=== PATIENT | male | born 1965 | race Caucasian/White ===

== ENCOUNTER 2021-01-27 23:55 | Inpatient (IN) | payer OTHER ==
[~2021-01-27] VITALS: Ht 182.9 cm; Wt 86.2 kg
[2021-01-28 01:12] LABS: HEMOGLOBIN 19.4 gm/dl (14.0-17.5); RED BLOOD COUNT 6.66 M/UL (4.20-5.50); WHITE BLOOD COUNT 14.5 K/UL (4.5-11.0)
[2021-01-28 01:47] LABS: BUN/CREATININE RATIO 23 (0-10)
[2021-01-28] MEDS ORDERED: GABAPENTIN300 MG PO (05:35)
[2021-01-28] MEDS ORDERED: HUMALOG 10100 UNITS/ SC (05:36)
[2021-01-28] MEDS ORDERED: ATORVASTATIN CA20 MG PO (05:40)
[2021-01-29 07:15] LABS: HEMOGLOBIN 18.9 gm/dl (14.0-17.5); RED BLOOD COUNT 6.18 M/UL (4.20-5.50)
[2021-01-29 07:27] LABS: WHITE BLOOD COUNT 8.5 K/UL (4.5-11.0)
[2021-01-29 07:51] LABS: BUN/CREATININE RATIO 19 (0-10)
[2021-01-29] MEDS ORDERED: ASPIRIN EC81 MG PO (16:04)
[2021-01-29] MEDS ORDERED: ATORVASTATIN CA20 MG PO (16:13)
--- NOTE | 2021-01-29 19:54 | NUR ---
1946- OFFERED PATIENT AN ENEMA AND HE REFUSED STATED HE WOULD DO AN ENEMA LATER AT HOME IF NEEDED.
== END 2021-01-29 19:50 | disposition home or self-care (01) | DRG 439 ==
LOC: ER1 23:55 → M/S 01-28 03:49 → CDU 01-28 03:49 → M/S 01-28 05:27
PROVIDERS: Family Medicine; Internal Medicine; ADMIT Internal Medicine
DX: K85.10 Biliary acute pancreatitis without necrosis or infection (principal); I74.5 Embolism and thrombosis of iliac artery; E44.0 Moderate protein-calorie malnutrition; E86.0 Dehydration; I70.209 Unspecified atherosclerosis of native arteries of extremities, unspecified extremity; R07.89 Other chest pain; E78.5 Hyperlipidemia, unspecified; D75.839 Thrombocytosis, unspecified; K59.00 Constipation, unspecified; R91.1 Solitary pulmonary nodule; F17.210 Nicotine dependence, cigarettes, uncomplicated; K76.0 Fatty (change of) liver, not elsewhere classified; E11.40 Type 2 diabetes mellitus with diabetic neuropathy, unspecified; Z79.4 Long term (current) use of insulin; Z79.82 Long term (current) use of aspirin; Z83.3 Family history of diabetes mellitus; Z68.25 Body mass index [BMI] 25.0-25.9, adult
CPT/HCPCS: 36415; 71045; 76705; 80053; 80061; 81001; 82550; 82553; 82962; 83690; 83874; 84484; 85025; 85027; 87040; 93005; 96374; 96375; 99285; C9113; J1650; J2270; J2405; J7120; Q9967; U0002

== ENCOUNTER 2021-11-07 19:39 | Inpatient (IN) | payer OTHER ==
[~2021-11-07] VITALS: Ht 185.4 cm; Wt 86.2 kg
[~2021-11-07 19:39] MED LIST: ASPIRIN EC81 MG PO; ATORVASTATIN CA20 MG PO; GABAPENTIN300 MG PO; HUMALOG 10100 UNITS/ SC
[2021-11-07 20:33] LABS: HEMOGLOBIN 19.9 gm/dl (14.0-17.5); RED BLOOD COUNT 6.35 M/UL (4.20-5.50); WHITE BLOOD COUNT 12.3 K/UL (4.5-11.0)
[2021-11-07 20:46] LABS: BUN/CREATININE RATIO 21 (0-10)
[2021-11-08] MEDS ORDERED: HUMALOG100 UNIT/1 SQ (09:08)
[2021-11-08] MEDS ORDERED: ASPIRIN EC81 MG PO (09:08)
[2021-11-08] MEDS ORDERED: VITAMIN B-121000 MC2 SL (09:08)
[2021-11-08] MEDS ORDERED: LANTUS100 UNIT/1 SQ (09:08)
--- NOTE | 2021-11-08 17:26 | NUR ---
PT CONTINUES TO BE IN SURGERY
--- NOTE | 2021-11-08 18:20 | NUR ---
PT RETURNED FROM THE OR WITH 5 LAPAROSCOPIC INCISIONS WITH DERMABOND TO ABDOMINAL AREA AND A LEFT COLOSTOMY WITH SMALL AMOUNT OF BLOODY BROWN LIQUID STOOL. HE IS SLEEPING AT THIS TIME FAMILY IS AT THIS BEDSIDE. CALL [facility] AND PHONE IN REACH.
[2021-11-09 06:21] LABS: WHITE BLOOD COUNT 11.1 K/UL (4.5-11.0)
[2021-11-09 06:22] LABS: HEMOGLOBIN 16.6 gm/dl (14.0-17.5); RED BLOOD COUNT 5.44 M/UL (4.20-5.50)
[2021-11-09 06:49] LABS: BUN/CREATININE RATIO 32 (0-10)
--- NOTE | 2021-11-09 15:31 | NUR ---
PT HAS BEEN IN THE CHAIR AT THE BEDSIDE SEVERAL TIMES TODAY WITH ONE ASSIST. OSTOMY APPLIANCE CHANGED THIS AM DUE TO LEAKING. STOOL NOTED. ENCOURAGED TO MOVE MUCH POSSIBLE.
[2021-11-10 06:26] LABS: HEMOGLOBIN 15.9 gm/dl (14.0-17.5); RED BLOOD COUNT 5.23 M/UL (4.20-5.50); WHITE BLOOD COUNT 11.4 K/UL (4.5-11.0)
[2021-11-10 06:50] LABS: BUN/CREATININE RATIO 24 (0-10)
[2021-11-11 06:12] LABS: RED BLOOD COUNT 5.1 M/UL (4.20-5.50); WHITE BLOOD COUNT 8.7 K/UL (4.5-11.0)
[2021-11-11 06:38] LABS: BUN/CREATININE RATIO 22 (0-10)
[2021-11-11] MEDS ORDERED: HYDROCODON-ACE1 EAC4 PO (13:28)
== END 2021-11-11 18:15 | disposition home or self-care (01) | DRG 330 ==
LOC: ER1 19:39 → MED SURG 4 11-08 01:37 → CDU 11-08 01:37 → MED SURG 4 11-08 08:55
PROVIDERS: Internal Medicine; Student in an Organized Health Care Education/Training Program; Surgery; ADMIT Internal Medicine
PROC: 0D1L4Z4 Bypass Transverse Colon to Cutaneous, Percutaneous Endoscopic Approach (ICD-10-PCS; 2021-11-08)
PROC: 0DTN4ZZ Resection of Sigmoid Colon, Percutaneous Endoscopic Approach (ICD-10-PCS; 2021-11-08)
PROC: B24BZZZ Ultrasonography of Heart with Aorta (ICD-10-PCS; principal; 2021-11-08 13:48)
DX: C18.7 Malignant neoplasm of sigmoid colon (principal); K56.699 Other intestinal obstruction unspecified as to partial versus complete obstruction; Z20.822 Contact with and (suspected) exposure to COVID-19; D75.1 Secondary polycythemia; K59.00 Constipation, unspecified; I08.1 Rheumatic disorders of both mitral and tricuspid valves; F17.210 Nicotine dependence, cigarettes, uncomplicated; E11.40 Type 2 diabetes mellitus with diabetic neuropathy, unspecified; E78.5 Hyperlipidemia, unspecified; E11.51 Type 2 diabetes mellitus with diabetic peripheral angiopathy without gangrene; Z79.4 Long term (current) use of insulin; Z87.19 Personal history of other diseases of the digestive system; Z79.82 Long term (current) use of aspirin; Z88.0 Allergy status to penicillin; Z80.0 Family history of malignant neoplasm of digestive organs
CPT/HCPCS: ECHO; 36415; 80048; 80053; 81001; 82378; 82962; 83690; 83735; 84100; 85025; 85027; 88341; 88342; 93005; 93306; 96361; 96374; 96375; 97161; 99285; C9113; J1100; J1170; J1885; J2001; J2250; J2270; J2405; J2704; J3010; Q9967; U0002